=== PATIENT | male | born 1970 | race Caucasian/White ===

== ENCOUNTER 2020-07-31 04:50 | Inpatient (IN) | payer OTHER ==
[~2020-07-31] VITALS: Ht 188 cm; Wt 64.4 kg
[2020-07-31 04:58] VITALS: Ht 188 cm; Wt 64.4 kg
[2020-07-31 05:51] LABS: BASOPHIL % 0.3 % (0.2-1.5); PLATELET COUNT 201 x10^3mcL (152-348); RED CELL DISTRIBUTION WIDTH 13.4 % (12.1-16.2)
[2020-07-31 05:54] LABS: CALCIUM 8.8 mg/dL (8.5-10.1); CARBON DIOXIDE 28.4 mmol/L (21-32); CHLORIDE SERUM 98 mmol/L (98-107); GFR1 > 60 mL/min; GLUCOSE SERUM 162 mg/dL (74-106); POTASSIUM SERUM 3.6 mmol/L (3.5-5.1); SODIUM SERUM 136 mmol/L (136-145)
[2020-07-31 06:13] LABS: ALBUMIN 4.2 g/dL (3.4-5.0); ALKALINE PHOSPHATASE 77 U/L (46-116); ALT/SGPT 50 U/L (16-63); AST/SGOT 71 U/L (15-37); BILIRUBIN TOTAL 0.58 mg/dL (0.20-1.00)
[2020-07-31 10:08] LABS: MAGNESIUM 2.2 mg/dL (1.8-2.4)
[2020-07-31 10:12] LABS: CHOLESTEROL/HDL RATIO 2.3
[2020-08-01 05:57] LABS: C REACTIVE PROTEIN 2.1 mg/dL (<=0.9); CALCIUM 8.7 mg/dL (8.5-10.1); CARBON DIOXIDE 27.5 mmol/L (21-32); CHLORIDE SERUM 101 mmol/L (98-107); CREATININE SERUM 0.9 mg/dL (0.7-1.3); GFR1 > 60 mL/min; GLUCOSE SERUM 123 mg/dL (74-106); SODIUM SERUM 137 mmol/L (136-145)
[2020-08-01 05:58] LABS: RED CELL DISTRIBUTION WIDTH 13.6 % (12.1-16.2)
[2020-08-01 06:02] LABS: BASOPHIL % 0.3 % (0.2-1.5)
[2020-08-01 07:37] LABS: PLATELET COUNT 201 x10^3mcL (152-348)
[2020-08-01 07:39] LABS: rbc morphology (normal/abnorm) NORMAL (NORMAL)
[2020-08-02] MEDS ORDERED: ACETAMINOPHEN650 M6 PO (04:22)
[2020-08-02] MEDS ORDERED: BIKTARVY 50-201 EACH PO (04:22)
[2020-08-02] MEDS ORDERED: ASPIR 8181 MG PO (04:22)
[2020-08-02] MEDS ORDERED: COREG6.25 M1 PO (04:22)
[2020-08-02] MEDS ORDERED: NASAL ALLERGY16.9 ML (04:23)
[2020-08-02] MEDS ORDERED: CRESTOR20 M1 PO (04:23)
[2020-08-02] MEDS ORDERED: MICROZIDE12.5 MG PO (04:23)
[2020-08-02] MEDS ORDERED: TRIAMCINOLONE A15 GM TOP (04:24)
[2020-08-02 06:36] LABS: BASOPHIL % 0.2 % (0.2-1.5); PLATELET COUNT 192 x10^3mcL (152-348); RED CELL DISTRIBUTION WIDTH 13.9 % (12.1-16.2)
[2020-08-02 06:57] LABS: CALCIUM 8.5 mg/dL (8.5-10.1); CHLORIDE SERUM 104 mmol/L (98-107); CREATININE SERUM 0.9 mg/dL (0.7-1.3); GFR1 > 60 mL/min; GLUCOSE SERUM 109 mg/dL (74-106); POTASSIUM SERUM 4.2 mmol/L (3.5-5.1); SODIUM SERUM 141 mmol/L (136-145)
[2020-08-03 14:29] VITALS: BP 121/78
[2020-08-03 17:58] VITALS: BP 145/89
[2020-08-04 05:07] VITALS: BP 106/69
[2020-08-04 06:44] LABS: CALCIUM 8.3 mg/dL (8.5-10.1); CARBON DIOXIDE 25.9 mmol/L (21-32); CHLORIDE SERUM 106 mmol/L (98-107); CREATININE SERUM 0.9 mg/dL (0.7-1.3); GFR1 > 60 mL/min; GLUCOSE SERUM 82 mg/dL (74-106); SODIUM SERUM 140 mmol/L (136-145)
[2020-08-04 06:59] LABS: BASOPHIL % 0.4 % (0.2-1.5); PLATELET COUNT 202 x10^3mcL (152-348); RED CELL DISTRIBUTION WIDTH 13.4 % (12.1-16.2)
[2020-08-04 08:32] VITALS: BP 125/72
[2020-08-04 11:59] VITALS: BP 130/77
[2020-08-04 12:32] LABS: rbc morphology (normal/abnorm) NORMAL (NORMAL)
[2020-08-04 16:16] VITALS: BP 112/70
[2020-08-04 20:00] VITALS: BP 145/65
[2020-08-05 08:22] VITALS: BP 119/80
[2020-08-05 16:18] VITALS: BP 105/56
[2020-08-05 20:48] VITALS: BP 132/76
[2020-08-06] VITALS (12 sets, daily range): BP systolic 101–145; BP diastolic 56–83
[2020-08-06 08:47] LABS: BASOPHIL % 0.4 % (0.2-1.5); PLATELET COUNT 218 x10^3mcL (152-348); RED CELL DISTRIBUTION WIDTH 13.3 % (12.1-16.2)
[2020-08-06 09:10] LABS: CALCIUM 9.1 mg/dL (8.5-10.1); CARBON DIOXIDE 28.5 mmol/L (21-32); CHLORIDE SERUM 105 mmol/L (98-107); CREATININE SERUM 1.1 mg/dL (0.7-1.3); GFR1 > 60 mL/min; GLUCOSE SERUM 91 mg/dL (74-106); POTASSIUM SERUM 5.1 mmol/L (3.5-5.1); SODIUM SERUM 139 mmol/L (136-145)
[2020-08-07 00:13] VITALS: BP 118/77
[2020-08-07 06:29] VITALS: BP 128/75
[2020-08-07 11:45] VITALS: BP 129/85
[2020-08-07 15:04] VITALS: BP 134/92
[2020-08-07 20:55] VITALS: BP 118/71
[2020-08-08 05:38] VITALS: BP 115/77
[2020-08-08 08:33] VITALS: BP 121/77
[2020-08-08 12:07] VITALS: BP 108/64
[2020-08-08 14:03] VITALS: BP 108/64
== END 2020-08-08 15:06 | DRG 246 ==
LOC: ED 04:50 → DU 06:38
PROVIDERS: Internal Medicine; Student in an Organized Health Care Education/Training Program; ADMIT Internal Medicine; ATTEND Internal Medicine
PROC: 027034Z Dilation of Coronary Artery, One Artery with Drug-eluting Intraluminal Device, Percutaneous Approach (ICD-10-PCS; 2020-08-06)
PROC: B2111ZZ Fluoroscopy of Multiple Coronary Arteries using Low Osmolar Contrast (ICD-10-PCS; 2020-08-06)
PROC: 4A023N7 Measurement of Cardiac Sampling and Pressure, Left Heart, Percutaneous Approach (ICD-10-PCS; principal; 2020-08-06 14:00)
DX: I21.4 Non-ST elevation (NSTEMI) myocardial infarction (principal); U07.1 COVID-19; I10 Essential (primary) hypertension; E78.5 Hyperlipidemia, unspecified; Z21 Asymptomatic human immunodeficiency virus [HIV] infection status; I25.119 Atherosclerotic heart disease of native coronary artery with unspecified angina pectoris; Z95.818 Presence of other cardiac implants and grafts
CPT/HCPCS: CLHCL; 76937; 83880; 85378; C1760; C1769; C1874; C1887; C1894; G0378; J1642; J1644; J1650; J2001; J2250; J2270; J3010; J7030; J7040; Q9967; U0003